=== PATIENT | female | born 1975 | race Caucasian/White ===

== ENCOUNTER → 2017-02-17 | Outpatient (CLI) | payer OTHER ==
--- NOTE | 2017-02-18 16:55 | RADIOLOGY REPORT (SQ) ---
EXAM DESCRIPTION: MRI LUMBAR SPINE WITHOUT COMPLETED DATE/TIME: 02/17/2017 8:20 am REASON FOR STUDY: RADICULOPATHY, LUMBOSACRAL REGION (M54.17) M54.17 RADICULOPATHY, LUMBOSACRAL [place] ON COMPARISON: None. TECHNIQUE: Sagittal and Axial imaging includes T1, T2, STIR and gradient echo sequences. Coronal T2/ HASTE imaging. LIMITATIONS: None. FINDINGS: VISUALIZED UPPER ABDOMEN: Limited evaluation. No acute or suspicious findings suggested. SEGMENTATION: No transitional anatomy. The lowest well-developed disc space is labeled L5-S1. ALIGNMENT: Anatomic. VERTEBRAE: Intact. BONE MARROW: Normal. No marrow replacement or reactive changes. DISC SIGNAL: Normal. No significant abnormal signal or loss of height. POSTERIOR ELEMENTS: Generally intact. No pars defect evident. HARDWARE: None in the spine. CORD AND CONUS: Normal in size and signal intensity. Conus at the appropriate level. SOFT TISSUES: No aortic aneurysm seen. No bulky retroperitoneal adenopathy or mass. No paraspinal mas s or fluid. L1-L2: No significant spinal stenosis or exit foraminal stenosis. L2-L3: No significant spinal stenosis or exit foraminal stenosis. L3-L4: Mild facet arthropathy, slight hypertrophy with associated tiny adjacent synovial cysts. No s uggestion of significant stenosis. L4-L5: Mild facet arthropathy. No significant stenosis. L5-S1: No significant spinal stenosis or exit foraminal stenosis. LOWER THORACIC: Incompletely imaged. No stenosis seen. SACRUM: Visualized upper sacrum intact. OTHER: No other significant findings. IMPRESSION: 1. Mild lumbar spondylosis, facet disease. No evidence of significant spinal stenosis or spinal malalignment. TECHNICAL DOCUMENTATION: JOB ID: [id number] [employer]- All Rights Reserved
== END ==
LOC: RAD 07:26
PROVIDERS: ATTEND Student in an Organized Health Care Education/Training Program
DX: M54.17 Radiculopathy, lumbosacral region (principal)
CPT/HCPCS: 72148

== ENCOUNTER 2018-11-16 08:13 | Emergency (ER) | payer OTHER ==
[2018-11-16] MEDS ORDERED: NORMAL SALINE 1000 ML 1,000 ML IV ONE (08:52)
[2018-11-16] MEDS ORDERED: ONDANSETRON HCL INJ/PF 4 MG/2 ML SDV IV ONE (08:52)
[2018-11-16] MEDS ORDERED: DICYCLOMINE HCL INJ 20 MG/2 ML AMPULE IM ONE (08:53)
[2018-11-16 09:02] LABS: ABSOLUTE EOSINOPHILS # (AUTO) 0.3 10^3/uL (0.0-0.6); ABSOLUTE LYMPHOCYTES (AUTO) 1.9 10^3/uL (0.5-4.7); ABSOLUTE MONOCYTES (AUTO) 0.7 10^3/uL (0.1-1.4); ABSOLUTE NEUT (AUTO) 6.8 10^3/uL (1.7-8.2); BASOPHILS % (AUTO) 0.5 % (0-2); EOSINOPHILS % (AUTO) 3.4 % (0-6); HEMATOCRIT 49.4 % (36.0-47.0); LYMPHOCYTES % (AUTO) 19.3 % (13-45); MEAN CORPUSCULAR HEMOGLOBIN 28.4 pg (27.0-33.4); MEAN CORPUSCULAR HGB CONC 34.4 g/dL (32.0-36.0); MEAN CORPUSCULAR VOLUME 83 fl (80-97); MONOCYTES % (AUTO) 7.6 % (3-13); PLATELET COUNT 303 10^3/uL (150-450); RED BLOOD COUNT 5.99 10^6/uL (3.72-5.28); RED CELL DISTRIBUTION WIDTH 13.5 % (11.5-14.0); SEGMENTED NEUTROPHILS % (AUTO) 69.2 % (42-78); TOTAL CELLS COUNTED % (AUTO) 100 %; WHITE BLOOD COUNT 9.8 10^3/uL (4.0-10.5)
[2018-11-16 09:22] LABS: ALANINE AMINOTRANSFERASE 54 U/L (9-52); ALBUMIN 4.5 g/dL (3.5-5.0); ALKALINE PHOSPHATASE 95 U/L (38-126); ANION GAP 14 (5-19); ASPARTATE AMINO TRANSFERASE 41 U/L (14-36); BILIRUBIN,DIRECT 0.3 mg/dL (0.0-0.4); BILIRUBIN,TOTAL 0.9 mg/dL (0.2-1.3); BLOOD UREA NITROGEN 14 mg/dL (7-20); CALCIUM 9.4 mg/dL (8.4-10.2); CARBON DIOXIDE 19 mmol/L (22-30); CHLORIDE 110 mmol/L (98-107); GLUCOSE 115 mg/dL (75-110); LIPASE 99.2 U/L (23-300); POTASSIUM 3.6 mmol/L (3.6-5.0); SODIUM 142.7 mmol/L (137-145)
[2018-11-16] MEDS ORDERED: RINGERS SOLUTION,LACTATED 1,000 ML IV ONE (09:42)
[2018-11-16 09:47] LABS: APPEARANCE,URINE SLIGHTLY-CLOUDY; BILIRUBIN,URINE NEGATIVE (NEGATIVE); CALCIUM OXALATE CRYSTALS,URINE RARE /HPF; COLOR,URINE YELLOW; GLUCOSE, URINE NEGATIVE (NEGATIVE); KETONES,URINE NEGATIVE (NEGATIVE); LEUKOCYTE ESTERASE,URINE TRACE (NEGATIVE); NITRITE,URINE NEGATIVE (NEGATIVE); PROTEIN,URINE NEGATIVE (NEGATIVE); URINE SPECIFIC GRAVITY 1.018; UROBILINOGEN,URINE NEGATIVE mg/dL (<2.0)
[2018-11-16] MEDS ORDERED: PROCHLORPERAZINE EDISYLATE INJ 10 MG/2 ML VIAL IV ONE (09:49)
[2018-11-16] MEDS ORDERED: DIPHENHYDRAMINE HCL 50 MG/ML VIAL IV ONE (09:49)
--- NOTE | 2018-11-16 10:02 | ER Document Report ---
ED GI/ - General Chief Complaint: Vomiting/Diarrhea Stated Complaint: VOMITTING Time Seen by Provider: 11/16/18 08:37 Primary Care Provider: [facility] [Provider Group] - Follow up as needed Mode of Arrival: Ambulatory Information source: Patient Notes: Patient presents complaining of nausea vomiting and diarrhea. This is the third day of her symptoms. Patient denies any fever. Patient does complain of some abdominal tenderness. Patient states she has not kept her seizure medications down and did have a seizure yesterday. Patient reports vomiting twice today and having diarrhea x3 episodes. TRAVEL OUTSIDE OF THE [place] IN LAST 30 DAYS: No - HPI Patient complains to provider of: Abdominal pain, Diarrhea, Vomiting Onset: Other - 2 days Timing/Duration: Persistent Quality of pain: Achy, Cramping Pain Level: 3 Location: Other - Periumbilical Vaginal bleeding (Compared to normal period): None Associated symptoms: Diarrhea, Nausea, Vomiting. denies: Blood in emesis, Blood in stool, Fever, Urinary hesitancy, Urinary frequency, Vaginal discharge Exacerbated by: Denies Relieved by: Denies Similar symptoms previously: No Recently seen / treated by doctor: Yes - Related Data Allergies/Adverse Reactions: omeprazole [From Prilosec] Allergy (Severe, Verified 11/16/18 08:15) Facial edema and rash Penicillins Allergy (Severe, Verified 11/16/18 08:15) Anaphylaxis carbamazepine [From Carbatrol] Allergy (Mild, Verified 11/16/18 08:15) rash lamotrigine [From Lamictal] Allergy (Mild, Verified 11/16/18 08:15) rash Past Medical History - General Information source: Patient - Social History Smoking Status: Never Smoker Frequency of alcohol use: None Drug Abuse: None 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 Denies: Hx Cerebrovascular Accident Renal/ Medical History: Reports: Hx Kidney Stones. Denies: Hx Peritoneal Dialysis Musculoskeletal Medical History: Denies Hx Arthritis Psychiatric Medical History: Reports: Hx Depression Past Surgical History: Reports: Hx Section, Hx Hysterectomy, Hx Kidney (Renal Surgery) - kidney stone removed - Immunizations Immunizations up to date: Yes Hx Diphtheria, Pertussis, Tetanus Vaccination: Yes Review of Systems - Review of Systems Constitutional: No symptoms reported. denies: Fever, Recent illness EENT: No symptoms reported Cardiovascular: No symptoms reported. denies: Chest pain Respiratory: No symptoms reported. denies: Cough, Short of breath Gastrointestinal: Abdominal pain, Diarrhea, Nausea, Vomiting. denies: Black stools, Rectal bleeding Genitourinary: No symptoms reported. denies: Dysuria Female Genitourinary: No symptoms reported Musculoskeletal: No symptoms reported Skin: No symptoms reported Hematologic/Lymphatic: No symptoms reported Neurological/Psychological: No symptoms reported Physical Exam - Vital signs Vitals: Temp Pulse Resp BP Pulse Ox 98.1 F 113 H 18 119/83 98 11/16/18 08:19 11/16/18 08:19 11/16/18 08:19 11/16/18 08:19 11/16/18 08:19 - General General appearance: Appears well, Alert In distress: Mild - HEENT Head: Normocephalic, Atraumatic Eyes: Normal Conjunctiva: Normal Nasal: Normal Mouth/Lips: Normal Mucous membranes: Normal Neck: Normal, Supple. No: Lymphadenopathy - Respiratory Respiratory status: No respiratory distress Chest status: Nontender Breath sounds: Normal. No: Rales, Rhonchi, Stridor, Wheezing Chest palpation: Normal - Cardiovascular Rhythm: Tachycardia Heart sounds: S1 appreciated, S2 appreciated Murmur: No - Abdominal Inspection: Normal Distension: No distension Bowel sounds: Normal Tenderness: Tender - Periumbilical Organomegaly: No organomegaly - Back Back: Normal, Nontender. No: CVA tenderness - Extremities General upper extremity: Normal inspection, Nontender, Normal strength General lower extremity: Normal inspection, Nontender, Normal strength - Neurological Neuro grossly intact: Yes Cognition: Normal Jonathan Coma Scale Eye Opening: Spontaneous [place] Coma Scale Verbal: Oriented Jonathan Coma Scale Motor: Obeys Commands Jonathan Coma Scale Total: 15 - Psychological Associated symptoms: Normal affect, Normal mood - Skin Skin Temperature: Warm Skin Moisture: Dry Skin Color: Normal Course - Re-evaluation Re-evalutation: 11/16/18 11:41 Patient's vomiting has improved. No additional emesis while here. Patient has been able to tolerate oral fluids as well as take her usual medication. Patient's tachycardia has resolved as well with IV hydration. Patient advised of incidental finding of left ureteral stones. Patient does have findings worrisome for a UTI. We will give patient a dose of Rocephin given her nausea and give her a prescription for Keflex to go home. No concern for obstructive uropathy at this time. Patient with normal renal function tests. No other acute findings noted on patient CT. - Vital Signs Vital signs: Temp Pulse Resp BP Pulse Ox 97.9 F 113 H 12 124/92 H 98 11/16/18 12:01 11/16/18 08:19 11/16/18 12:01 11/16/18 12:01 11/16/18 12:01 - Laboratory Result Diagrams: 11/16/18 08:48 11/16/18 08:48 Laboratory results interpreted by me: 11/16/18 11/16/18 11/16/18 08:48 08:48 09:34 RBC 5.99 H Hgb 17.0 H Hct 49.4 H Chloride 110 H Carbon Dioxide 19 L Glucose 115 H AST 41 H ALT 54 H Urine Blood LARGE H Ur Leukocyte Esterase TRACE H 11/16/18 11:42 Labs- Entire Visit 11/16/18 11/16/18 11/16/18 08:48 08:48 09:34 WBC 9.8 RBC 5.99 H Hgb 17.0 H Hct 49.4 H MCV 83 MCH 28.4 MCHC 34.4 RDW 13.5 Plt Count 303 Seg Neutrophils % 69.2 Lymphocytes % 19.3 Monocytes % 7.6 Eosinophils % 3.4 Basophils % 0.5 Absolute Neutrophils 6.8 Absolute Lymphocytes 1.9 Absolute Monocytes 0.7 Absolute Eosinophils 0.3 Absolute Basophils 0.0 Sodium 142.7 Potassium 3.6 Chloride 110 H Carbon Dioxide 19 L Anion Gap 14 BUN 14 Creatinine 0.86 Est GFR ( Amer) > 60 Est GFR (Non-Af Amer) > 60 Glucose 115 H Calcium 9.4 Total Bilirubin 0.9 Direct Bilirubin 0.3 Neonat Total Bilirubin Not Reportable Neonat Direct Bilirubin Not Reportable Neonat Indirect Bili Not Reportable AST 41 H ALT 54 H Alkaline Phosphatase 95 Total Protein 8.0 Albumin 4.5 Lipase 99.2 Urine Color YELLOW Urine Appearance SLIGHTLY-CLOUDY Urine pH 5.0 Ur Specific [place]ato 1.018 Urine Protein NEGATIVE Urine Glucose (UA) NEGATIVE Urine Ketones NEGATIVE Urine Blood LARGE H Urine Nitrite NEGATIVE Urine Bilirubin NEGATIVE Urine Urobilinogen NEGATIVE Ur Leukocyte Esterase TRACE H Urine WBC (Auto) 18 Urine RBC (Auto) 118 Urine Bacteria (Auto) TRACE Squamous Epi Cells Auto 4 Calcium Oxalate Cr Auto RARE Urine Mucus (Auto) OCC Urine Ascorbic Acid NEGATIVE - Diagnostic Test Radiology reviewed: Reports reviewed Discharge - Discharge Clinical Impression: Dehydration, Nausea vomiting and diarrhea Abdominal pain Qualifiers: Abdominal location: unspecified location Qualified Code(s): R10.9 - Unspecified abdominal pain UTI (urinary tract infection) Qualifiers: Urinary tract infection type: site unspecified Hematuria presence: with hematuria Qualified Code(s): N39.0 - Urinary tract infection, site not specified Condition: Stable Disposition: HOME, SELF-CARE Additional Instructions: Return immediately for any new or worsening symptoms Followup with your primary care provider, call tomorrow to make a followup appointment Urine culture is pending, will call if you need any different treatment VOMITING: Vomiting (or nausea without vomiting) can be caused by many other different problems. It can mean that something's wrong with the stomach, such as ulcers or inflammation or the intestinal tract, such as appendicitis. But it can also be a symptom of a problem that has nothing to do with the stomach or intestines. Vomiting is common with severe headaches, earaches, tonsillitis, and kidney infections, etc. We see it with pneumonia or heart attacks. Drugs can cause nausea and vomiting. Many abdominal problems cause vomiting; for example, gallstones, kidney stones, pancreatitis, and intestinal obstruction (blocked bowels). In most cases, curing the vomiting depends on fixing the problem that caused it. For temporary relief, we may use an anti-nausea medicine. For home use, we can prescribe suppositories, chewable pills, pills that dissolve in the mouth, or liquid anti-nausea drugs. If the vomiting seems to be caused by a problem in the stomach, acid-suppressing drugs may be prescribed as well. It's important to avoid dehydration. Sip small amounts of clear liquids (soft drinks, tea, broth, etc) . Try to take fluids frequently even if you are vomiting to prevent dehydration. Take increasing amounts of fluid and when liquids are being consumed successfully, advance to small amounts of bland food (toast, soups, mashed potatoes, etc.) until you are able to resume a regular diet. Avoid aspirin, tobacco, and alcohol. If the vomiting worsens, if the problem that's making you vomit worsens, or if there's evidence of bleeding in the stomach (such as black, tarry stool, or bloody or black vomit), you should return immediately. Also, return if abdominal pain worsens or becomes localized to one area or you develop high fever. Call your doctor if you aren't improved in 24 hours. DIARRHEA, NON-SPECIFIC: Diarrhea means frequent, watery stools. There are many causes. Any problem that keeps the intestinal tract from absorbing water from the stool can lead to diarrhea. A sudden new diarrhea problem is usually caused by a virus, food sensitivity, toxic bacteria, or drugs. In this case, we expect the problem to go away soon. Testing is done only if you seem seriously ill from the diarrhea. If you have chronic diarrhea, or diarrhea that keeps coming back, we need to find out why. Chronic diarrhea can be due to inflammation of the bowels such as Crohn's disease or ulcerative colitis, food sensitivity such as intolerance to lactose or wheat protein, irritable bowel syndrome, and other problems. If your diarrhea is a significant problem but it's not clear why you have it, we'll refer you to a specialist for further testing. During an episode of diarrhea, drink small amounts (two to six ounces) of clear liquids (soft drinks, sport drinks, herb teas, broth, etc). Take fluids frequently to prevent dehydration. It's usually not a problem to take mild anti- diarrhea medication such as Kaopectate or Pepto-Bismol. As the diarrhea eases, advance to small amounts of bland food (mashed potato, toast) for 24 hours. Call the physician if blood appears in your vomit or stool, if vomiting lasts longer than 24 hours, if the abdominal pain worsens or becomes localized to one area, if you develop high fever, or if you become lightheaded and weak. INTRAVENOUS (I V) FLUIDS: As part of your care today, you received intravenous (IV) fluids. IV fluids are administered to patients who are dehydrated or to those who have certain chemical (electrolyte) abnormalities that need correcting. ANTINAUSEA MEDICATION: You have been given a medication to suppress nausea and vomiting. This type of medication can be given as a shot, pill, or suppository. It will usually last for many hours. Pills and shots usually last six to eight hours. For the typical illness, only one or two doses of the medication may be necessary. Mild lightheadedness may occur. This type of medicine can cause drowsiness. Do not drive or operate dangerous machinery while under its influence. Do not mix with alcohol. See your doctor at once if you have muscle spasms or tightness, or uncontrollable motions (particularly of the neck, mouth, or jaw). Persistent vomiting or severe lightheadedness should also be evaluated by the physician. FOLLOW-UP CARE: If you have been referred to a physician for follow-up care, call the physicians office for an appointment as you were instructed or within the next two days. If you experience worsening or a significant change in your symptoms, notify the physician immediately or return to the Emergency Department at any ti me for re-evaluation. Prescriptions: Cephalexin Monohydrate [Keflex 500 mg Capsule] 500 mg PO Q6H 5 Days capsule Dicyclomine HCl [Bentyl 20 mg Tablet] 20 mg PO QID PRN #20 tablet PRN Reason: Ondansetron HCl [Zofran 4 mg Tablet] 1 - 2 tab PO Q6 PRN #15 tablet PRN Reason: Forms: Return to Work [facility] [[facility] - Follow up as needed
--- NOTE | 2018-11-16 10:38 | RADIOLOGY REPORT (SQ) ---
EXAM DESCRIPTION: CT ABD/PELVIS NO ORAL OR IV COMPLETED DATE/TIME: 11/16/2018 10:20 am REASON FOR STUDY: V/D, L side abd pain, +hematuria, hx stones COMPARISON: 08/18/2015 TECHNIQUE: CT scan of the abdomen and pelvis performed without intravenous or oral contrast. Images reviewed with lung, soft tissue, and bone windows. Reconstructed coronal and sagittal MPR images revi ewed. All images stored on PACS. All CT scanners at this facility use dose modulation, iterative reconstruction, and/or weight based d osing when appropriate to reduce radiation dose to as low as reasonably achievable (ALARA). [facility]: Dose Right [facility]: CareDose [facility]: Dose Right [facility]: Teradose 4D [facility]: Casentric RADIATION DOSE: CT Rad equipment meets quality standard of care and radiation dose reduction techniq ues were employed. CTDIvol: 6.8 mGy. DLP: 382 mGy-cm.mGy. LIMITATIONS: None. FINDINGS: LOWER CHEST: No significant findings. No nodules or infiltrates. NON-CONTRASTED LIVER, SPLEEN, ADRENALS: Evaluation limited by lack of IV contrast. No identified sign ificant masses. PANCREAS: No masses. No peripancreatic inflammatory changes. GALLBLADDER: No identified stones by CT criteria. No inflammatory changes to suggest cholecystitis. RIGHT KIDNEY AND URETER: No suspicious masses. Assessment limited by lack of IV contrast. No signif icant calcifications. No hydronephrosis or hydroureter. LEFT KIDNEY AND URETER: No suspicious masses. Assessment limited by lack of IV contrast. Multiple r enal calculi measuring up to about 5 mm. No hydronephrosis or hydroureter. AORTA AND RETROPERITONEUM: No aneurysm. No retroperitoneal masses or adenopathy. BOWEL AND PERITONEAL CAVITY: No obvious masses or inflammatory changes. No free fluid. APPENDIX: Normal. PELVIS, BLADDER, AND ABDOMINAL WALL:No abnormal masses. No free fluid. Bladder normal. BONES: No significant findings. OTHER: No other significant finding. IMPRESSION: Nonobstructing left renal calculi. COMMENT: Quality ID # [id number]: Final reports with documentation of one or more dose reduction techniques (e.g., Automated exposure control, adjustment of the mA and/or kV according to patient size, use of iterative reconstruction technique) TECHNICAL DOCUMENTATION: JOB ID: [id number]- All Rights Reserved Reading location - IP/workstation name: [email or web address]
[2018-11-16] MEDS ORDERED: CEFTRIAXONE 1 GM/D5W RTU 1 GM/50 ML RTUPB IV ONE (11:42)
[2018-11-16 12:23] VITALS: BP 124/92
== END 2018-11-16 12:23 | disposition home or self-care (01) ==
LOC: ER 08:13
DX: N39.0 Urinary tract infection, site not specified (principal); R11.2 Nausea with vomiting, unspecified; R19.7 Diarrhea, unspecified; E86.0 Dehydration; R10.9 Unspecified abdominal pain
CPT/HCPCS: 99284; 96372; 96361; 96375; 96365; 36415; 87086; 83690; 85025; 80053; 81001; 74176; J0500; J1200; J0780; J2405; J7030; J7120; J0696

== ENCOUNTER 2019-07-06 13:36 | Emergency (ER) | payer OTHER ==
[2019-07-06] MEDS ORDERED: DIPHENHYDRAMINE HCL 50 MG/ML VIAL IV ONE (14:32)
[2019-07-06] MEDS ORDERED: METOCLOPRAMIDE HCL INJ/PF 10 MG/2 ML SDV IV ONE (14:32)
[2019-07-06] MEDS ORDERED: KETOROLAC TROMETHAMINE INJ/PF 30 MG/1 ML SDV IV ONE (14:32)
--- NOTE | 2019-07-06 14:35 | ER Document Report ---
ED Medical Screen (RME) - General Chief Complaint: Depression Stated Complaint: HEADACHE/PSYCH Time Seen by Provider: 07/06/19 14:26 Primary Care Provider: JEANNIE OTERO MD [Primary Care Provider] - Follow up as needed Notes: 43-year-old female with MDD on an SSRI, history of migraine headaches and epilepsy presents to the emergency department seeking mental health services. Patient states that she had a traumatic event happen today that "set me off" and she is having difficulty coping and has extremely high anxiety. Patient states that she has recently changed insurance and she was seeing a psychologist weekly which was helping and she lost those services which is affecting her. Exam: Nontoxic-appearing, depressed mood, mild anxiety, lungs clear to auscultation all contreras, tachycardia with regular rhythm I have greeted and performed a rapid initial assessment of this patient. A comprehensive ED assessment and evaluation of the patient, analysis of test results and completion of medical decision making process will be conducted by an additional ED providers. TRAVEL OUTSIDE OF THE [place] IN LAST 30 DAYS: No - Related Data Allergies/Adverse Reactions: omeprazole [From Prilosec] Allergy (Severe, Verified 07/06/19 14:20) Facial edema and rash carbamazepine [From Carbatrol] Allergy (Mild, Verified 07/06/19 14:20) rash lamotrigine [From Lamictal] Allergy (Mild, Verified 07/06/19 14:20) rash Penicillins Allergy (Mild, Verified 07/06/19 14:20) Anaphylaxis kepra Allergy (Mild, Uncoded 07/06/19 14:20) Rash Home Medications: Tamadol PRN. Zofran PRN. Phenergan PRN. NAproxen PRN. Flexeril PRN. Prozac Past Medical History - Social History Chew tobacco use (# tins/day): No Drug Abuse: None - Past Medical History Cardiac Medical History: Denies: Hx Coronary Artery Disease, Hx Heart Attack, Hx Hypertension Pulmonary Medical History: Denies: Hx Asthma, Hx Bronchitis, Hx COPD, Hx Pneumonia Neurological Medical History: Reports: Hx Migraine, Hx Seizures - last seizure 2 weeks ago. Denies: Hx Cerebrovascular Accident Renal/ Medical History: Reports: Hx Kidney Stones. Denies: Hx Peritoneal Dialysis Musculoskeltal Medical History: Denies Hx Arthritis Psychiatric Medical History: Reports: Hx Depression Past Surgical History: Reports: Hx Section, Hx Hysterectomy, Hx Kidney (Renal Surgery) - kidney stone removed - Immunizations Immunizations up to date: Yes Hx Diphtheria, Pertussis, Tetanus Vaccination: Yes Physical Exam - Vital signs Vitals: Temp Pulse Resp BP Pulse Ox 98.7 F 107 H 18 147/109 H 99 07/06/19 14:21 07/06/19 14:21 07/06/19 14:21 07/06/19 14:21 07/06/19 14:21 Course - Vital Signs Vital signs: Temp Pulse Resp BP Pulse Ox 98.7 F 107 H 18 147/109 H 99 07/06/19 14:21 07/06/19 14:21 07/06/19 14:21 07/06/19 14:21 07/06/19 14:21 Doctor's Discharge - Discharge Referrals: JEANNIE OTERO MD [Primary Care Provider] - Follow up as needed
[2019-07-06 15:11] LABS: ABSOLUTE BASOPHILS # (AUTO) 0.1 10^3/uL (0.0-0.2); ABSOLUTE EOSINOPHILS # (AUTO) 0.3 10^3/uL (0.0-0.6); ABSOLUTE LYMPHOCYTES (AUTO) 2.5 10^3/uL (0.5-4.7); ABSOLUTE MONOCYTES (AUTO) 0.8 10^3/uL (0.1-1.4); ABSOLUTE NEUT (AUTO) 6.4 10^3/uL (1.7-8.2); BASOPHILS % (AUTO) 0.9 % (0-2); EOSINOPHILS % (AUTO) 2.9 % (0-6); HEMATOCRIT 44.9 % (36.0-47.0); HEMOGLOBIN 15.8 g/dL (12.0-15.5); LYMPHOCYTES % (AUTO) 24.9 % (13-45); MEAN CORPUSCULAR HEMOGLOBIN 28.6 pg (27.0-33.4); MEAN CORPUSCULAR HGB CONC 35.3 g/dL (32.0-36.0); MEAN CORPUSCULAR VOLUME 81 fl (80-97); MONOCYTES % (AUTO) 7.4 % (3-13); PLATELET COUNT 275 10^3/uL (150-450); RED BLOOD COUNT 5.54 10^6/uL (3.72-5.28); RED CELL DISTRIBUTION WIDTH 13.4 % (11.5-14.0); SEGMENTED NEUTROPHILS % (AUTO) 63.9 % (42-78); TOTAL CELLS COUNTED % (AUTO) 100 %; WHITE BLOOD COUNT 10.1 10^3/uL (4.0-10.5)
[2019-07-06 15:18] LABS: APPEARANCE,URINE CLEAR; BILIRUBIN,URINE NEGATIVE (NEGATIVE); COLOR,URINE YELLOW; GLUCOSE, URINE NEGATIVE (NEGATIVE); KETONES,URINE NEGATIVE (NEGATIVE); LEUKOCYTE ESTERASE,URINE NEGATIVE (NEGATIVE); NITRITE,URINE NEGATIVE (NEGATIVE); PROTEIN,URINE NEGATIVE (NEGATIVE); URINE SPECIFIC GRAVITY 1.019; UROBILINOGEN,URINE NEGATIVE mg/dL (<2.0)
[2019-07-06 15:30] LABS: ALBUMIN 4.7 g/dL (3.5-5.0); ALKALINE PHOSPHATASE 73 U/L (38-126); ANION GAP 12 (5-19); ASPARTATE AMINO TRANSFERASE 60 U/L (14-36); BILIRUBIN,DIRECT 0.3 mg/dL (0.0-0.4); BILIRUBIN,TOTAL 0.6 mg/dL (0.2-1.3); BLOOD UREA NITROGEN 16 mg/dL (7-20); CALCIUM 9.4 mg/dL (8.4-10.2); CARBON DIOXIDE 26 mmol/L (22-30); CHLORIDE 102 mmol/L (98-107); GLUCOSE 91 mg/dL (75-110); POTASSIUM 3.6 mmol/L (3.6-5.0); TOTAL PROTEIN 8.4 g/dL (6.3-8.2)
[2019-07-06 15:31] LABS: URINE AMPHETAMINES SCREEN NEGATIVE; URINE BARBITURATES SCREEN NEGATIVE; URINE COCAINE SCREEN NEGATIVE; URINE MARIJUANA (THC) SCREEN NEGATIVE; URINE METHADONE SCREEN NEGATIVE; URINE PHENCYCLIDINE SCREEN NEGATIVE
[2019-07-06 15:36] LABS: ACETAMINOPHEN < 10 ug/mL (10-30); ALCOHOL < 10 mg/dL (NONE DETECTED); SALICYLATE < 1.0 mg/dL (2.0-20.0); URINE BENZODIAZEPINES SCREEN UNCONFIRMED POSITIVE
--- NOTE | 2019-07-06 16:45 | PSYCHOLOGICAL NOTE ---
Psych Note - Psych Note Date seen by psych provider: 07/06/19 Time seen by psych provider: 15:50 Psych Note: Reason for consult: Anxiety Patient is a 43 year old female who presents to ED via POV for concerns with anxiety. Patient is experiencing psychosocial and financial stressors. 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 Patient states she is the primary breadwinner in the family since her lost his job. 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 Patient states she receives tele-mentalhealth services through her insurance company. Patient states she does not receive benefit and frequently misses appointments. Patient states she would "do better with face to face therapy. Patient is prescribed Zoloft. Patient is requesting medication to manage anxiety. Patient reports suicidal ideation with no plan this morning, however denies current suicidal ideation. Patient states "I have 3 beautiful children that are my world." Patient's urine drug screen is positive for benzo. Patient states she has not taken any benzo. A search of [facility] was conducted and showed that patient has been frequently prescribed Tramadol, Hydrocodone, Diazepam, and Ambien. There is concern that patient is drug seeking. Patient is linked with [facility]. Patient is not being honest regarding her prescription medications. Update: 16:57- Patient states she "is feeling so much better now the migraine is gone." Patient is alert and oriented to person, place, time and circumstance. Mood is normal with congruent affect. Patient does not present as anxious. Patient denies suicidal and homicidal ideations. Patient denies current auditory and visual hallucination. Delusions are absent and behavior is congruent with an intact reality based presentation (i.e.: organized and linear through processes). There is no observed behavior that suggests patient is responding to internal stimuli. Patient denies current auditory and visual hallucinations. Eye contact is appropriate. Conversational speech is within normal rate, tone, and prosody. Intellectual ability appears to be within average range. Attention and concentration are good. Insight, judgment and impulse control are currently fair. Medication recommendations per [facility] contracted psychiatrist Dr. Annamarie TORREZ is as follows: Buspar 5MG, BID Impression/Plan: Patient is cleared from acute psychiatric services. Medication recommendations have been provided. Patient denies suicidal and homicidal ideations. Patient denies auditory and visual hallucinations. There is no observed behavior that suggests patient is responding to internal stimuli. There is significant concern that patient is drug seeking. Patient could benefit from outpatient mental health services. Darlene was provided a mental health recourse list and Dr. Jang was consulted on the care and management of this patient; attending physician is in agreement with recommendations and disposition.
[2019-07-06 17:17] VITALS: BP 140/95
--- NOTE | 2019-07-06 17:24 | ER Document Report ---
ED Psych Disorder / Suicide - General Chief Complaint: Depression Stated Complaint: HEADACHE/PSYCH Time Seen by Provider: 07/06/19 14:26 Primary Care Provider: JEANNIE OTERO MD [ACTIVE STAFF] - Follow up as needed Notes: Patient is a 43-year-old female with a history of migraines, epilepsy and depression who presents to the emergency department with a chief complaint of high anxiety and migraine. Patient reports increased stress and anxiety over the past few days. Patient reports after an incident this morning involving her job she became extremely anxious and developed a headache. Patient reports she developed a frontal headache with a nausea and photosensitivity. Patient denies vomiting. Patient reports since receiving medication in triage her headache is now subsided. Patient reports she would like something for her anxiety. Patient reports she was doing tele-psych through her insurance and receiving therapy sessions through them. Patient reports she has not had this recently. Patient reports her primary care physician is at [facility]. Patient does live with her spouse and has 3 children. Patient denies SI or HI. Patient reports that her children are her world. TRAVEL OUTSIDE OF THE [place] IN LAST 30 DAYS: No - Related Data Allergies/Adverse Reactions: omeprazole [From Prilosec] Allergy (Severe, Verified 07/06/19 14:20) Facial edema and rash carbamazepine [From Carbatrol] Allergy (Mild, Verified 07/06/19 14:20) rash lamotrigine [From Lamictal] Allergy (Mild, Verified 07/06/19 14:20) rash Penicillins Allergy (Mild, Verified 07/06/19 14:20) Anaphylaxis kepra Allergy (Mild, Uncoded 07/06/19 14:20) Rash Home Medications: Tamadol PRN. Zofran PRN. Phenergan PRN. NAproxen PRN. Flexeril PRN. Prozac Past Medical History - General Information source: Patient - Social History Smoking Status: Never Smoker Chew tobacco use (# tins/day): No Drug Abuse: None Lives with: Family, Spouse/Significant other Family History: Reviewed & Not Pertinent Patient has suicidal ideation: Yes Patient has homicidal ideation: No - Past Medical History Cardiac Medical History: Reports: None Denies: Hx Coronary Artery Disease, Hx Heart Attack, Hx Hypertension Pulmonary Medical History: Reports: None Denies: Hx Asthma, Hx Bronchitis, Hx COPD, Hx Pneumonia EENT Medical History: Reports: None Neurological Medical History: Reports: Hx Migraine, Hx Seizures - last seizure 2 weeks ago. Denies: Hx Cerebrovascular Accident Endocrine Medical History: Reports: None Renal/ Medical History: Reports: Hx Kidney Stones. Denies: Hx Peritoneal Dialysis Malignancy Medical History: Reports: None GI Medical History: Reports: None Musculoskeletal Medical History: Reports None, Denies Hx Arthritis Skin Medical History: Reports None Psychiatric Medical History: Reports: Hx Depression Traumatic Medical History: Reports: None Infectious Medical History: Reports: None Past Surgical History: Reports: Hx Section, Hx Hysterectomy, Hx Kidney (Renal Surgery) - kidney stone removed - Immunizations Immunizations up to date: Yes Hx Diphtheria, Pertussis, Tetanus Vaccination: Yes Review of Systems - Review of Systems Constitutional: No symptoms reported EENT: See HPI Cardiovascular: No symptoms reported Respiratory: No symptoms reported Gastrointestinal: No symptoms reported Genitourinary: No symptoms reported Female Genitourinary: No symptoms reported Musculoskeletal: No symptoms reported Skin: No symptoms reported Hematologic/Lymphatic: No symptoms reported Neurological/Psychological: No symptoms reported Physical Exam - Vital signs Vitals: Temp Pulse Resp BP Pulse Ox 98.7 F 107 H 18 147/109 H 99 07/06/19 14:21 07/06/19 14:21 07/06/19 14:21 07/06/19 14:21 07/06/19 14:21 Interpretation: Hypertensive - Notes Notes: GENERAL: Well-appearing, well-nourished and in no acute distress. HEAD: Atraumatic, normocephalic. EYES: Pupils equal round and reactive to light, extraocular movements intact, sclera anicteric, conjunctiva are normal. ENT: Nares patent, oropharynx clear without exudates. Moist mucous membranes. NECK: Normal range of motion, supple without lymphadenopathy or JVD. LUNGS: Breath sounds clear to auscultation bilaterally and equal. No wheezes rales or rhonchi. HEART: Regular rate and rhythm without murmurs, rubs or gallops. ABDOMEN: Soft, nontender, normoactive bowel sounds. No guarding, no rebound. No masses appreciated. BACK: No cervical, thoracic, lumbar midline tenderness. No saddle anesthesia, normal distal neurovascular exam. GENITOURINARY: Deferred. EXTREMITIES: Normal range of motion, no pitting or edema. No clubbing or cyanosis. NEUROLOGICAL: Cranial nerves II through XII grossly intact. Normal speech, normal gait. PSYCH: Normal mood, normal affect. SKIN: Warm, Dry, normal turgor, no rashes or lesions noted. Course - Re-evaluation Re-evalutation: 07/06/19 17:23 At time of my assessment patient is resting comfortably on stretcher in no acute distress. Patient does not have any anxiety. Patient reports relief of her m igraine headache after receiving medications in triage. Patient is under the care of of pain management, this is located at [place] [facility] and does have a follow-up appointment on Tuesday. Patient reports she does take medications for chronic back pain. Patient also reports her primary care physician is at [facility]. I did inform her to call them on Tuesday as they do provide psychiatric services. Further recommendations of mental health they do recommend placing the patient on BuSpar 5 mg twice daily. I did inform the patient I will provide her with a two-week dose of this so it is imperative that she follows up with her primary care physician, call make an appointment on Tuesday so they can refill this prescription and see how she is doing. Patient was given strict return precautions. Patient denies SI or HI. Patient nontoxic-appearing and stable for discharge. 07/06/19 17:35 Patient reports she does take 40 mg of Prozac daily for her depression. I did consult with mental health prior to initiating the BuSpar, consulted with Dr. Jang who states that at these dosages there are no contraindications to mixing the Prozac and the BuSpar. - Vital Signs Vital signs: Temp Pulse Resp BP Pulse Ox 97.8 F 93 18 140/95 H 100 07/06/19 17:16 07/06/19 17:16 07/06/19 17:16 07/06/19 17:16 07/06/19 17:16 - Laboratory Result Diagrams: 07/06/19 14:50 07/06/19 14:50 Laboratory results interpreted by me: 07/06/19 07/06/19 07/06/19 14:50 14:50 14:50 RBC 5.54 H Hgb 15.8 H AST 60 H Total Protein 8.4 H Urine Blood SMALL H Salicylates < 1.0 L Acetaminophen < 10 L 07/06/19 17:24 Patient does not have a leukocytosis or anemia. Patient does not have alteration electrolytes or kidney function. Patient's AST is slightly elevated. Patient is not does not have a urinary tract infection. Patient was positive for benzodiazepines. Laboratory 07/06/19 07/06/19 07/06/19 14:50 14:50 14:50 WBC 10.1 RBC 5.54 H Hgb 15.8 H Hct 44.9 MCV 81 MCH 28.6 MCHC 35.3 RDW 13.4 Plt Count 275 Lymph % (Auto) 24.9 Dorado % (Auto) 7.4 Eos % (Auto) 2.9 Baso % (Auto) 0.9 Absolute Neuts (auto) 6.4 Absolute Lymphs (auto) 2.5 Absolute Monos (auto) 0.8 Absolute Eos (auto) 0.3 Absolute Basos (auto) 0.1 Seg Neutrophils % 63.9 Sodium 140.2 Potassium 3.6 Chloride 102 Carbon Dioxide 26 Anion Gap 12 BUN 16 Creatinine 0.70 Est GFR ( Amer) > 60 Est GFR (MDRD) Non-Af > 60 Glucose 91 Calcium 9.4 Total Bilirubin 0.6 Direct Bilirubin 0.3 Neonat Total Bilirubin Not Reportable Neonat Direct Bilirubin Not Reportable Neonat Indirect Bili Not Reportable AST 60 H ALT 78 Alkaline Phosphatase 73 Total Protein 8.4 H Albumin 4.7 Serum HCG, Qual NEGATIVE Urine Color Urine Appearance Urine pH Ur Specific Hutchinson Urine Protein Urine Glucose (UA) Urine Ketones Urine Blood Urine Nitrite Urine Bilirubin Urine Urobilinogen Ur Leukocyte Esterase Urine WBC (Auto) Urine RBC (Auto) Urine Bacteria (Auto) Squamous Epi Cells Auto Urine Mucus (Auto) Urine Ascorbic Acid Salicylates < 1.0 L Urine Opiates Screen Urine Methadone Screen Acetaminophen < 10 L Ur Barbiturates Screen Ur Phencyclidine Scrn Ur Amphetamines Screen U Benzodiazepines Scrn Urine Cocaine Screen U Marijuana (THC) Screen Serum Alcohol < 10 07/06/19 07/06/19 14:50 14:50 WBC RBC Hgb Hct MCV MCH MCHC RDW Plt Count Lymph % (Auto) Dorado % (Auto) Eos % (Auto) Baso % (Auto) Absolute Neuts (auto) Absolute Lymphs (auto) Absolute Monos (auto) Absolute Eos (auto) Absolute Basos (auto) Seg Neutrophils % Sodium Potassium Chloride Carbon Dioxide Anion Gap BUN Creatinine Est GFR ( Amer) Est GFR (MDRD) Non-Af Glucose Calcium Total Bilirubin Direct Bilirubin Neonat Total Bilirubin Neonat Direct Bilirubin Neonat Indirect Bili AST ALT Alkaline Phosphatase Total Protein Albumin Serum HCG, Qual Urine Color YELLOW Urine Appearance CLEAR Urine pH 6.0 Ur Specific Hutchinson 1.019 Urine Protein NEGATIVE Urine Glucose (UA) NEGATIVE Urine Ketones NEGATIVE Urine Blood SMALL H Urine Nitrite NEGATIVE Urine Bilirubin NEGATIVE Urine Urobilinogen NEGATIVE Ur Leukocyte Esterase NEGATIVE Urine WBC (Auto) 9 Urine RBC (Auto) 7 Urine Bacteria (Auto) TRACE Squamous Epi Cells Auto 1 Urine Mucus (Auto) RARE Urine Ascorbic Acid NEGATIVE Salicylates Urine Opiates Screen NEGATIVE Urine Methadone Screen NEGATIVE Acetaminophen Ur Barbiturates Screen NEGATIVE Ur Phencyclidine Scrn NEGATIVE Ur Amphetamines Screen NEGATIVE U Benzodiazepines Scrn UNCONFIRMED POSITIVE Urine Cocaine Screen NEGATIVE U Marijuana (THC) Screen NEGATIVE Serum Alcohol Discharge - Discharge Clinical Impression: Anxiety Depression Qualifiers: Depression Type: major depressive disorder Major depression recurrence: recurrent Active/Remission status: currently active Major depression episode severity: mild Qualified Code(s): F33.0 - Major depressive disorder, recurrent, mild Migraine Qualifiers: Migraine type: without aura Status migrainosus presence: without status migrainosus Intractability: not intractable Qualified Code(s): G43.009 - Migraine without aura, not intractable, without status migrainosus Condition: Stable Disposition: HOME, SELF-CARE Additional Instructions: *Today was seen in emergency department for headache and anxiety. After giving you medications your headache has improved. We are placing you on a BuSpar 5 mg twice daily. I am giving you a 2-week dose of this. It is imperative that you follow-up with your primary care physician and call them on Tuesday for an appointment so you can have this prescription refilled within 2 weeks. Please use the resources given to you by her mental health staff to help you set up psychiatric assistance to include therapy. We have given your first dose of BuSpar here in the emergency department. Please take your second dose tomorrow morning and start this twice a day. Please return to the emergency department if you have any new or worsening symptoms such as increased anxiety, suicidal thoughts, homicidal thoughts, severe depression or any concerning signs or symptoms. Anxiety The physician feels that some of your health problems are being caused by anxiety. Anxiety affects your health in many ways. Anxiety alone can cause palpitations, sweats, chest pains, abdominal pains, shortness of breath, and headaches. It contributes to ulcer disease, high blood pressure, irritable bowel syndrome, and has been shown to cause flare-ups of many other diseases. Anxiety is not a simple disorder to treat. If the anxiety is due to recent life stresses, you may simply need time to "work through" the changes. If the anxiety is due to an underlying unhappiness with yourself or due to psychiatric disturbance, professional help will be needed. Your physician can refer you for further help if needed. Anti-anxiety medication is occasionally given if the stress is acute or if you are having trouble sleeping. Chronic or frequent use of these medications is not a good idea because the body becomes reliant on it, preventing you from dealing with life's normal stresses. Depression Your evaluation reveals that you have mental depression. While symptoms may be vague, they often include disturbance of sleep, fatigue, loss of appetite, and general loss of interest in life. While depression may be a side effect of drugs, or a reaction to a major change in your life, many cases have no known cause. If depression is acute, and related to a major loss in your life, you can expect it to clear completely with time. If you have been depressed a long time, are prone to repeated bouts of depression or low mood, or have been thinking of suicide, get help. Depression can be treated with anti-depressant medication and counselling. Long-term depression will often take a few weeks to clear, even with appropriate medication. Follow-up care is important. Contact your physician, the hospital emergency center, crisis line, or your counsellor if you are losing control or having self-destructive thoughts. Prescriptions: Buspirone HCl [Buspar 5 mg Tablet] 1 tab PO BID #28 tab Referrals: JEANNIE OTERO MD [ACTIVE STAFF] - Follow up as needed
[2019-07-06] MEDS ORDERED: BUSPIRONE HCL 10 MG TABLET PO ONE (17:25)
--- NOTE | 2019-07-06 19:50 | EKG REPORT ---
SEVERITY:- OTHERWISE NORMAL ECG - SINUS TACHYCARDIA SUPERIOR QRS AXIS : Confirmed by: Sharan Chung MD 06-Jul-2019 19:49:26
== END 2019-07-06 18:07 | disposition home or self-care (01) ==
LOC: ER 13:36
DX: G43.009 Migraine without aura, not intractable, without status migrainosus (principal); F41.9 Anxiety disorder, unspecified; F33.0 Major depressive disorder, recurrent, mild; Z88.0 Allergy status to penicillin
CPT/HCPCS: 93005; 99285; 96374; 96375; 36415; 80307 ×4; 84703; 85025; 80053; 81001; 93010; J1885; J2765

== ENCOUNTER → 2020-01-15 | Outpatient (CLI) | payer OTHER ==
--- NOTE | 2020-01-15 13:01 | RADIOLOGY REPORT (SQ) ---
EXAM DESCRIPTION: U/S ABDOMEN LIMITED W/O DOP IMAGES COMPLETED DATE/TIME: 01/15/2020 10:13 am REASON FOR STUDY: ABNORMAL LEVELS OF OTHER SERUM ENZYMES R74.8 ABNORMAL LEVELS OF OTHER SERUM ENZYM ES COMPARISON: None. TECHNIQUE: Dynamic and static grayscale images acquired of the abdomen and recorded on PACS. Additio nal selected color Doppler and spectral images recorded. LIMITATIONS: None. FINDINGS: PANCREAS: No masses. Visualized pancreatic duct normal caliber. LIVER: Increased echogenicity. No masses. LIVER VASCULATURE: Normal directional flow of the main portal vein and hepatic veins. GALLBLADDER: No stones. Normal wall thickness. No pericholecystic fluid. ULTRASOUND-DETECTED GOEL'S SIGN: Negative. INTRAHEPATIC DUCTS AND COMMON DUCT: CBD and intrahepatic ducts normal caliber. No filling defects. AORTA: No aneurysm. RIGHT KIDNEY: Normal size, 10.1 cm. Normal echogenicity. No solid or suspicious masses. No hydroneph rosis. No calcifications. PERITONEAL AND RIGHT PLEURAL SPACE: No ascites or effusions. OTHER: No other significant findings. IMPRESSION: Hepatic steatosis. TECHNICAL DOCUMENTATION: JOB ID: [id number] 2010 [employer]- All Rights Reserved Reading location - IP/workstation name: [email or web address]
== END ==
LOC: RAD 09:46
PROVIDERS: ATTEND Nurse Practitioner Family
DX: R74.8 Abnormal levels of other serum enzymes (principal); K76.0 Fatty (change of) liver, not elsewhere classified
CPT/HCPCS: 76705

== ENCOUNTER 2020-03-20 09:25 | Emergency (ER) | payer OTHER ==
[2020-03-20] MEDS ORDERED: LORAZEPAM INJ 2 MG/1 ML VIAL IV ONE (09:49)
--- NOTE | 2020-03-20 09:57 | ER Document Report ---
ED General - General Chief Complaint: Seizure Stated Complaint: POSSIBLE SEIZURE/HEADACHE Time Seen by Provider: 03/20/20 09:36 Primary Care Provider: AV OGLESBY NP [Primary Care Provider] - Follow up as needed TRAVEL OUTSIDE OF THE [place] IN LAST 30 DAYS: No - HPI Notes: Chief complaint: Seizure History of present illness: 44-year-old female with longstanding history of seizure disorder has been seen here multiple times previously for same now presenting with 2 seizures at home this morning per . She came in by EMS. Patient is supposed to be taking topiramate but apparently missed some doses of her medication. She is not been running a fever. No vomiting. No other intercurrent illness reported. Patient does not use alcohol or tobacco and has no history of drug use. She does have a history of chronic migraine headaches. reports she had 2 brief generalized tonic-clonic seizures. There was no loss of urinary continence. She was mildly post ictal following her seizures and remains so. She complains of a slight dull generalized headache at this time. - Related Data Allergies/Adverse Reactions: omeprazole [From Prilosec] Allergy (Severe, Verified 03/20/20 10:36) Facial edema and rash carbamazepine [From Carbatrol] Allergy (Mild, Verified 03/20/20 10:36) rash lamotrigine [From Lamictal] Allergy (Mild, Verified 03/20/20 10:36) rash levetiracetam [From Keppra] Allergy (Mild, Verified 03/20/20 10:36) Penicillins Allergy (Mild, Verified 03/20/20 10:36) Anaphylaxis Past Medical History - General Information source: Patient, Relative, [facility] Records - Social History Smoking Status: Never Smoker Frequency of alcohol use: None Drug Abuse: None Family History: Reviewed & Not Pertinent - Past Medical History Cardiac Medical History: Denies: Hx Coronary Artery Disease, Hx Heart Attack, Hx Hypertension Pulmonary Medical History: Denies: Hx Asthma, Hx Bronchitis, Hx COPD, Hx Pneumonia Neurological Medical History: Reports: Hx Migraine, Hx Seizures - last seizure 2 weeks ago. Denies: Hx Cerebrovascular Accident Renal/ Medical History: Reports: Hx Kidney Stones. Denies: Hx Peritoneal Dialysis Musculoskeletal Medical History: Denies Hx Arthritis Psychiatric Medical History: Reports: Hx Depression Past Surgical History: Reports: Hx Section, Hx Hysterectomy, Hx Kidney (Renal Surgery) - kidney stone removed - Immunizations Immunizations up to date: Yes Hx Diphtheria, Pertussis, Tetanus Vaccination: Yes Review of Systems - Review of Systems Notes: Constitutional: Negative for fever. HENT: Negative for sore throat. Eyes: Negative for visual changes. Cardiovascular: Negative for chest pain. Respiratory: Negative for shortness of breath. Gastrointestinal: Negative for abdominal pain, vomiting or diarrhea. Genitourinary: Negative for dysuria. Musculoskeletal: Negative for back pain. Skin: Negative for rash. Neurological: As per HPI. 10 point ROS negative except as marked above and in HPI. Physical Exam - Vital signs Vitals: Resp Pulse Ox 15 96 03/20/20 09:49 03/20/20 09:49 - Notes Notes: GENERAL: Well-developed well-nourished middle-aged female appearing sleepy and mildly postictal. SKIN: Good turgor no rashes. HEAD: Normocephalic atraumatic. EYES: Pupils are large equal and briskly reactive to light. EOMI. Conjunctivae and sclerae clear. EARS: CANALS AND TMS CLEAR. NOSE: CLEAR. MOUTH: Moist mucosa. Good dentition. No stridor or edema. No drooling. NECK: Supple. No masses or thyromegaly. No adenopathy. Carotids 2+ without bruits. No JVD. BACK: Symmetrical without tenderness. CHEST: Respirations unlabored. Breath sounds clear and symmetrical. HEART: Regular rhythm. No murmur gallop or rub. ABDOMEN: Soft nontender without masses, organomegaly or rebound. Bowel sounds normally active. No bruits. GENITALIA: Deferred. EXTREMITIES: No edema. No calf tenderness. Cap refill less than 1.5 seconds. Dorsalis pedis and posterior tibial pulses 3+ and symmetrical. NEUROLOGICAL: GCS 14 with subtraction of 1 4 eyes closed initially. She is s omewhat sleepy and slow to answer but answers appropriately and follows commands appropriately. She is oriented x3. Fluent speech. Cranial nerves II through XII intact. Sensorimotor and cerebellar normal. Normal tone. Deep tendon reflexes are 4+ and symmetrical and she has 1 beat of ankle clonus bilaterally. PSYCHIATRIC: Flat affect. Course - Re-evaluation Re-evalutation: 03/20/20 14:09 44-year-old female with longstanding history of seizure disorder missed doses of her usual anticonvulsant and had 2 brief generalized seizures at home. She was mildly postictal upon arrival here. She gradually return to normal baseline mental status. She was given 1 dose of IV Ativan here. We gave her a dose of her regular medication orally. Her lab evaluation is otherwise unremarkable here. is here with her and understands the importance of being certain that she takes prescribed medication at home. She is ambulatory in the room and taking oral fluids normally with a nonfocal examination and is currently oriente d x3. She appears stable for outpatient follow-up with primary care provider. Findings, clinical impression and plan of treatment have been discussed with patient/family. Understanding of current findings and recommendations has been acknowledged by them and there is agreement regarding disposition and follow-up. - Vital Signs Vital signs: Temp Pulse Resp BP Pulse Ox 18 111/87 H 99 03/20/20 14:01 03/20/20 14:00 03/20/20 14:01 - Laboratory Result Diagrams: 03/20/20 09:53 03/20/20 09:53 Laboratory results interpreted by me: 03/20/20 03/20/20 09:53 09:53 RBC 5.44 H Hgb 16.0 H Direct Bilirubin 0.5 H AST 71 H ALT 60 H - Diagnostic Test Radiology reviewed: Reports reviewed - Per radiologist: Negative noncontrast head CT - EKG Interpretation by Me Additional EKG results interpreted by me: 03/20/20 16:13 Twelve-lead EKG reviewed by me contemporaneously: 1144 hrs. Indication for study: Seizure Rhythm: Normal sinus with multiple PACs Rate: 79 Intervals: Normal QRS axis: ST/T wave changes: None Comparison with prior tracing: Compared with prior tracing 07/06/2019 there is no significant interval change Interpretation: Sinus rhythm with PACs Discharge - Discharge Clinical Impression: Seizure, Noncompliance with medications Condition: Stable Disposition: HOME, SELF-CARE Additional Instructions: Avoid missing doses of prescribed medication for your seizure disorder. Do not drive a motor vehicle or operate machinery until cleared for these activities by your primary care doctor. Return here as needed for new or worsening symptoms. Forms: Return to Work Referrals: AV OGLESBY NP [Primary Care Provider] - Follow up as needed
[2020-03-20 10:07] LABS: ABSOLUTE BASOPHILS # (AUTO) 0.1 10^3/uL (0.0-0.2); ABSOLUTE EOSINOPHILS # (AUTO) 0.2 10^3/uL (0.0-0.6); ABSOLUTE LYMPHOCYTES (AUTO) 2.3 10^3/uL (0.5-4.7); ABSOLUTE MONOCYTES (AUTO) 0.6 10^3/uL (0.1-1.4); ABSOLUTE NEUT (AUTO) 4.7 10^3/uL (1.7-8.2); BASOPHILS % (AUTO) 0.7 % (0-2); HEMATOCRIT 44.6 % (36.0-47.0); LYMPHOCYTES % (AUTO) 29.3 % (13-45); MEAN CORPUSCULAR HEMOGLOBIN 29.5 pg (27.0-33.4); MEAN CORPUSCULAR VOLUME 82 fl (80-97); MONOCYTES % (AUTO) 7.1 % (3-13); PLATELET COUNT 272 10^3/uL (150-450); RED BLOOD COUNT 5.44 10^6/uL (3.72-5.28); RED CELL DISTRIBUTION WIDTH 13.8 % (11.5-14.0); SEGMENTED NEUTROPHILS % (AUTO) 59.9 % (42-78); TOTAL CELLS COUNTED % (AUTO) 100 %; WHITE BLOOD COUNT 7.8 10^3/uL (4.0-10.5)
[2020-03-20 10:31] LABS: ALBUMIN 4.4 g/dL (3.5-5.0); ALKALINE PHOSPHATASE 94 U/L (38-126); ANION GAP 9 (5-19); ASPARTATE AMINO TRANSFERASE 71 U/L (14-36); BILIRUBIN,DIRECT 0.5 mg/dL (0.0-0.4); BILIRUBIN,TOTAL 1.1 mg/dL (0.2-1.3); BLOOD UREA NITROGEN 12 mg/dL (7-20); CALCIUM 9.2 mg/dL (8.4-10.2); CARBON DIOXIDE 28 mmol/L (22-30); CHLORIDE 100 mmol/L (98-107); GLUCOSE 105 mg/dL (75-110); POTASSIUM 3.6 mmol/L (3.6-5.0); TOTAL PROTEIN 7.3 g/dL (6.3-8.2)
[2020-03-20 10:35] LABS: ALCOHOL < 10 mg/dL (NONE DETECTED)
--- NOTE | 2020-03-20 10:54 | RADIOLOGY REPORT (SQ) ---
EXAM DESCRIPTION: CT HEAD WITHOUT IMAGES COMPLETED DATE/TIME: 03/20/2020 10:39 am REASON FOR STUDY: seizure COMPARISON: CT of the head without contrast from 10/21/2009. TECHNIQUE: Axial images acquired through the brain without intravenous contrast. Images reviewed wi th bone, brain and subdural windows. Additional sagittal and coronal reconstructions were generated. Images stored on PACS. All CT scanners at this facility use dose modulation, iterative reconstruction, and/or weight based d osing when appropriate to reduce radiation dose to as low as reasonably achievable (ALARA). [facility]: Dose Right [facility]: CareDose [facility]: Dose Right [facility]: Teradose 4D [facility]: [employer] RADIATION DOSE: CT Rad equipment meets quality standard of care and radiation dose reduction techniq ues were employed. CTDIvol: 53.2 mGy. DLP: 1044 mGy-cm. LIMITATIONS: None. FINDINGS: There is no acute intracranial hemorrhage, vascular territorial infarct, extra-axial fluid collection, mass effect or midline shift. The remy-white matter differentiation is preserved. The caliber of the ventricles is concordant with the degree of sulcation. There is no effacement of the cerebral sulci or basal subarachnoid cisterns. The orbits and globes are intact. The paranasal sinuses are clear. There is no fracture of the calv arium. IMPRESSION: No acute intracranial abnormality. EVIDENCE OF ACUTE STROKE: NO. COMMENT: Quality ID # [id number]: Final reports with documentation of one or more dose reduction techniques (e.g., Automated exposure control, adjustment of the mA and/or kV according to patient size, use of iterative reconstruction technique) TECHNICAL DOCUMENTATION: JOB ID: [id number] 2010 [employer]- All Rights Reserved Reading location - IP/workstation name: [email or web address]
--- NOTE | 2020-03-20 10:54 | RADIOLOGY REPORT (SQ) ---
EXAM DESCRIPTION: CHEST SINGLE VIEW IMAGES COMPLETED DATE/TIME: 03/20/2020 10:43 am REASON FOR STUDY: seizure COMPARISON: None. EXAM PARAMETERS: NUMBER OF VIEWS: One view. TECHNIQUE: An AP view of the chest was obtained. RADIATION DOSE: NA LIMITATIONS: None. FINDINGS: LUNGS AND PLEURA: No consolidation, pleural effusion or pneumothorax. MEDIASTINUM AND HILAR STRUCTURES: No mediastinal or hilar contour abnormality. HEART AND VASCULAR STRUCTURES: The cardiac silhouette and pulmonary vasculature are within normal tierney its. BONES: No acute findings. HARDWARE: None in the chest. OTHER: No other finding. IMPRESSION: No acute cardiopulmonary process. TECHNICAL DOCUMENTATION: JOB ID: [id number] 2010 [employer]- All Rights Reserved Reading location - IP/workstation name: [email or web address]
[2020-03-20] MEDS ORDERED: NORMAL SALINE 1000 ML 1,000 ML IV ONE (11:14)
[2020-03-20 14:22] VITALS: BP 111/87
--- NOTE | 2020-03-20 18:28 | EKG REPORT ---
SEVERITY:- BORDERLINE ECG - SINUS RHYTHM LEFT AXIS DEVIATION BORDERLINE T ABNORMALITIES, DIFFUSE LEADS : Confirmed by: Shannon Lambert 20-Mar-2020 18:27:19
== END 2020-03-20 14:23 | disposition home or self-care (01) ==
LOC: ER 09:25
DX: G40.909 Epilepsy, unspecified, not intractable, without status epilepticus (principal); Z88.0 Allergy status to penicillin; Z88.8 Allergy status to other drugs, medicaments and biological substances; Z91.14 Patient's other noncompliance with medication regimen
CPT/HCPCS: 93005; 99285; 96361; 96374; 36415; 80307; 85025; 80053; 80201; 71045; 70450; 93010; J2060; J7030

== ENCOUNTER 2020-05-22 12:59 | Emergency (ER) | payer OTHER ==
--- NOTE | 2020-05-22 13:27 | ER Document Report ---
ED Medical Screen (RME) - General Stated Complaint: HEADACHE/POSSIBLE SEIZURE Time Seen by Provider: 05/22/20 13:19 Primary Care Provider: AV OGLESBY NP [Primary Care Provider] - Follow up as needed Mode of Arrival: Medic Information source: Patient Notes: 44-year-old female with history of epilepsy presented to the emergency department chief complaint of increased seizure activity today. She has had 3 seizures since 4 AM. She states she does get an aura with these. One seizure was witnessed by EMS. She is complaining of a headache currently. She does take Qudexy as prescribed by her physician. Patient calm, cooperative, answering all questions appropriately, no focal neurological deficits noted on exam. I have greeted and performed a rapid initial assessment of this patient. A comprehensive ED assessment and evaluation of the patient, analysis of test results and completion of the medical decision making process will be conducted by additional ED providers. I have specifically instructed the patient or family members with the patient to immediately return to any nursing staff should anything change in the patient's condition or with their chief complaint. TRAVEL OUTSIDE OF THE [place] IN LAST 30 DAYS: No - Related Data Allergies/Adverse Reactions: omeprazole [From Prilosec] Allergy (Severe, Verified 05/22/20 13:13) Facial edema and rash carbamazepine [From Carbatrol] Allergy (Mild, Verified 05/22/20 13:13) rash lamotrigine [From Lamictal] Allergy (Mild, Verified 05/22/20 13:13) rash levetiracetam [From Keppra] Allergy (Mild, Verified 05/22/20 13:13) Penicillins Allergy (Mild, Verified 05/22/20 13:13) Anaphylaxis Past Medical History - Past Medical History Cardiac Medical History: Denies: Hx Coronary Artery Disease, Hx Heart Attack, Hx Hypertension Pulmonary Medical History: Denies: Hx Asthma, Hx Bronchitis, Hx COPD, Hx Pneumonia Neurological Medical History: Reports: Hx Migraine, Hx Seizures - last seizure 2 weeks ago. Denies: Hx Cerebrovascular Accident Renal/ Medical History: Reports: Hx Kidney Stones. Denies: Hx Peritoneal Dialysis Musculoskeltal Medical History: Denies Hx Arthritis Psychiatric Medical History: Reports: Hx Depression Past Surgical History: Reports: Hx Section, Hx Hysterectomy, Hx Kidney (Renal Surgery) - kidney stone removed - Immunizations Immunizations up to date: Yes Hx Diphtheria, Pertussis, Tetanus Vaccination: Yes Physical Exam - Vital signs Vitals: Temp Pulse Resp BP Pulse Ox 98.0 F 103 H 16 113/73 100 05/22/20 13:13 05/22/20 13:13 05/22/20 13:13 05/22/20 13:13 05/22/20 13:13 Course - Vital Signs Vital signs: Temp Pulse Resp BP Pulse Ox 98.0 F 103 H 16 113/73 100 05/22/20 13:13 05/22/20 13:13 05/22/20 13:13 05/22/20 13:13 05/22/20 13:13 Doctor's Discharge - Discharge Referrals: AV OGLESBY KNITTING MACHINE TENDER [Primary Care Provider] - Follow up as needed
[2020-05-22 14:06] LABS: ABSOLUTE BASOPHILS # (AUTO) 0.1 10^3/uL (0.0-0.2); ABSOLUTE EOSINOPHILS # (AUTO) 0.3 10^3/uL (0.0-0.6); ABSOLUTE LYMPHOCYTES (AUTO) 2.4 10^3/uL (0.5-4.7); ABSOLUTE MONOCYTES (AUTO) 1.1 10^3/uL (0.1-1.4); ABSOLUTE NEUT (AUTO) 7.2 10^3/uL (1.7-8.2); BASOPHILS % (AUTO) 0.9 % (0-2); EOSINOPHILS % (AUTO) 2.8 % (0-6); HEMATOCRIT 45.7 % (36.0-47.0); LYMPHOCYTES % (AUTO) 21.4 % (13-45); MEAN CORPUSCULAR HEMOGLOBIN 28.9 pg (27.0-33.4); MEAN CORPUSCULAR VOLUME 83 fl (80-97); MONOCYTES % (AUTO) 9.7 % (3-13); PLATELET COUNT 297 10^3/uL (150-450); RED BLOOD COUNT 5.53 10^6/uL (3.72-5.28); RED CELL DISTRIBUTION WIDTH 14.4 % (11.5-14.0); SEGMENTED NEUTROPHILS % (AUTO) 65.2 % (42-78); TOTAL CELLS COUNTED % (AUTO) 100 %; WHITE BLOOD COUNT 11.1 10^3/uL (4.0-10.5)
[2020-05-22 14:09] LABS: APPEARANCE,URINE CLEAR; BILIRUBIN,URINE NEGATIVE (NEGATIVE); COLOR,URINE YELLOW; GLUCOSE, URINE NEGATIVE (NEGATIVE); KETONES,URINE NEGATIVE (NEGATIVE); LEUKOCYTE ESTERASE,URINE NEGATIVE (NEGATIVE); NITRITE,URINE NEGATIVE (NEGATIVE); PROTEIN,URINE NEGATIVE (NEGATIVE)
[2020-05-22 14:30] LABS: ALBUMIN 4.8 g/dL (3.5-5.0); ALKALINE PHOSPHATASE 101 U/L (38-126); ANION GAP 13 (5-19); ASPARTATE AMINO TRANSFERASE 26 U/L (14-36); BILIRUBIN,DIRECT 0.1 mg/dL (0.0-0.4); BILIRUBIN,TOTAL 0.6 mg/dL (0.2-1.3); BLOOD UREA NITROGEN 17 mg/dL (7-20); CALCIUM 9.8 mg/dL (8.4-10.2); CARBON DIOXIDE 25 mmol/L (22-30); CHLORIDE 100 mmol/L (98-107); POTASSIUM 3.1 mmol/L (3.6-5.0); TOTAL PROTEIN 8.1 g/dL (6.3-8.2)
[2020-05-22] MEDS ORDERED: LORAZEPAM INJ 2 MG/1 ML VIAL IV ONE (14:30)
[2020-05-22 14:36] LABS: ALCOHOL < 10 mg/dL (NONE DETECTED); GLUCOSE 67 mg/dL (75-110)
[2020-05-22 14:39] LABS: URINE AMPHETAMINES SCREEN NEGATIVE; URINE BARBITURATES SCREEN NEGATIVE; URINE COCAINE SCREEN NEGATIVE; URINE MARIJUANA (THC) SCREEN NEGATIVE; URINE METHADONE SCREEN NEGATIVE; URINE PHENCYCLIDINE SCREEN NEGATIVE
[2020-05-22 14:41] LABS: URINE BENZODIAZEPINES SCREEN UNCONFIRMED POSITIVE
[2020-05-22] MEDS ORDERED: POTASSIUM CHLORIDE 10 MEQ TABLET.ER PO ONE (16:17)
[2020-05-22] MEDS ORDERED: NAPROXEN 375 MG TABLET PO ONE (16:17)
--- NOTE | 2020-05-22 16:24 | ER Document Report ---
ED Seizure - General Chief Complaint: Probable Seizure Stated Complaint: HEADACHE/POSSIBLE SEIZURE Time Seen by Provider: 05/22/20 13:19 Primary Care Provider: RAMÍREZ MALIK MD [NO LOCAL MD] - Follow up tomorrow AV OGLESBY NP [Primary Care Provider] - Follow up in 1 week Mode of Arrival: Medic Notes: Patient is a 44 year old female who presents to the emergency department after having a seizure at work and again here in the emergency department. Patient states that she felt an aura before she had her seizure earlier. Denies any loss of sensation or weakness. Patient states that she does remember her seizure from earlier today at work. States that she has a slight headache. - Related Data Allergies/Adverse Reactions: omeprazole [From Prilosec] Allergy (Severe, Verified 05/22/20 13:13) Facial edema and rash carbamazepine [From Carbatrol] Allergy (Mild, Verified 05/22/20 13:13) rash lamotrigine [From Lamictal] Allergy (Mild, Verified 05/22/20 13:13) rash levetiracetam [From Keppra] Allergy (Mild, Verified 05/22/20 13:13) Penicillins Allergy (Mild, Verified 05/22/20 13:13) Anaphylaxis Past Medical History - General Information source: Patient - Social History Smoking Status: Never Smoker Chew tobacco use (# tins/day): No Frequency of alcohol use: None Drug Abuse: None Family History: Reviewed & Not Pertinent - Past Medical History Cardiac Medical History: Denies: Hx Coronary Artery Disease, Hx Heart Attack, Hx Hypertension Pulmonary Medical History: Denies: Hx Asthma, Hx Bronchitis, Hx COPD, Hx Pneumonia Neurological Medical History: Reports: Hx Migraine, Hx Seizures - last seizure 2 weeks ago. Denies: Hx Cerebrovascular Accident Renal/ Medical History: Reports: Hx Kidney Stones. Denies: Hx Peritoneal Dialysis Musculoskeletal Medical History: Denies Hx Arthritis Psychiatric Medical History: Reports: Hx Depression Past Surgical History: Reports: Hx Section, Hx Hysterectomy, Hx Kidney (Renal Surgery) - kidney stone removed - Immunizations Immunizations up to date: Yes Hx Diphtheria, Pertussis, Tetanus Vaccination: Yes Review of Systems - Review of Systems Notes: REVIEW OF SYSTEMS: CONSTITUTIONAL : Denies recent illness. Denies recent unintentional weight loss. Denies fever, chills, or sweats. EENT: Denies eye, ear, throat, or mouth pain, discharge, or symptoms. Denies nasal or sinus congestion. CARDIOVASCULAR: Denies chest pain. RESPIRATORY: Denies shortness of breath, cough, congestion, difficulty breathing, or wheezing. GASTROINTESTINAL: Denies nausea, vomiting, and diarrhea. Denies abdominal pain. Denies constipation. GENITOURINARY: Denies difficulty urinating, burning, blood in urine, urgency or frequency. MUSCULOSKELETAL: Denies neck and back pain. Denies joint pain or swelling. SKIN: Denies rash, itchiness, or lesions HEMATOLOGIC : Denies easy bruising or bleeding. LYMPHATIC: Denies swollen, painful, enlarged glands. NEUROLOGICAL: See HPI. PSYCHIATRIC: Denies stress, anxiety, alteration in sleep patterns, or depression. All other systems reviewed and negative. Physical Exam - Vital signs Vitals: Temp Pulse Resp BP Pulse Ox 98.0 F 103 H 16 113/73 100 05/22/20 13:13 05/22/20 13:13 05/22/20 13:13 05/22/20 13:13 05/22/20 13:13 - Notes Notes: PHYSICAL EXAMINATION: GENERAL: Appears well, healthy, well-nourished, no acute distress. HEAD: Normocephalic, atraumatic. EYES: PERRL, conjunctiva normal, all extraocular movements intact, sclera nonicteric ENT: Moist mucous membranes. NECK: Supple, no noticeable swelling, redness, rash. Normal range of motion. LUNGS: Equal breath sounds bilaterally and clear to auscultation. No wheezes rales or rhonchi. CARDIOVASCULAR: S1-S2, regular rate, regular rhythm. Radial pulses 2+, normal. ABDOMEN: Normoactive bowel sounds. Soft, nontender, no guarding, no rebound tenderness, and no masses palpated. EXTREMITIES: Normal strength and range of motion, no pitting or edema. No cyanosis. NEUROLOGICAL: Moves all extremities upon command. Strength 5/5 in all extremities. PSYCH: Normal mood, normal affect. SKIN: Warm, dry. No rash, lesions, ulcerations noted. Normal skin turgor. Course - Re-evaluation Re-evalutation: 05/22/20 16:24 Chemistries show a potassium of 3.1. We will give the patient 40 M EQ's of potassium. Glucose was also 67. Patient received a cup of juice. Urinalysis shows 3+ bacteria in her urine. We will send urine for culture. We will also start the patient on Keflex. Toxicology was positive for benzodiazepines, but she received lorazepam when she had her seizure here in the emergency department. I called Dr. Malik's office. Will await a callback from Dr. Malik. Patient does not have an appointment until September. 05/22/20 17:[address] Malik, the patient's neurologist. Patient will follow up with her. We also have started her on Bactrim. - Vital Signs Vital signs: Temp Pulse Resp BP Pulse Ox 98.0 F 103 H 12 109/78 100 05/22/20 13:13 05/22/20 13:13 05/22/20 15:01 05/22/20 15:01 05/22/20 15:01 - Laboratory Result Diagrams: 05/22/20 13:39 05/22/20 13:39 Laboratory results interpreted by me: 05/22/20 05/22/20 05/22/20 13:39 13:39 13:39 WBC 11.1 H RBC 5.53 H Hgb 16.0 H RDW 14.4 H Potassium 3.1 L Glucose 67 L Urine Urobilinogen 4.0 H Discharge - Discharge Clinical Impression: Seizure, Hypoglycemia, Hypokalemia Urinary tract infection Qualifiers: Urinary tract infection type: site unspecified Hematuria presence: without hematuria Qualified Code(s): N39.0 - Urinary tract infection, site not specified Condition: Stable Disposition: HOME, SELF-CARE Instructions: Trimethoprim-Sulfa ([facility]), Urinary Tract Infection ([facility]) Additional Instructions: Your urine shows findings consistent with a urinary tract infection. Please take all the antibiotics as directed even if your symptoms have improved. Please follow-up with your primary care physician as needed. Return to emergency room if you develop fever >101F, persistent vomiting, become lethargic, have severe pain in your sides, or any other symptoms that are concerning to you. You also had a seizure, which was most likely caused by your urinary tract infection, low blood sugar, and low potassium. Please make sure you are eating well and often. Please follow-up with your neurologist tomorrow or on Tuesday. Prescriptions: Sulfamethoxazole/Trimethoprim [Bactrim Ds Tablet] 1 each PO BID 7 Days #14 tablet Forms: Return to Work Referrals: AV OGLESBY NP [Primary Care Provider] - Follow up in 1 week RAMÍREZ MALIK MD [NO LOCAL MD] - Follow up tomorrow
[2020-05-22] MEDS ORDERED: SULFAMETHOXAZOLE/TRIMETHOPRIM 800-160 MG TABLET PO ONE (16:59)
[2020-05-22] MEDS ORDERED: TRAMADOL HCL 50 MG TABLET PO ONE (18:09)
[2020-05-22] MEDS ORDERED: PROMETHAZINE HCL 25 MG TABLET PO ONE (18:09)
[2020-05-22] MEDS ORDERED: CYCLOBENZAPRINE HCL 10 MG TABLET PO ONE (18:09)
[2020-05-22 18:32] VITALS: BP 109/88
== END 2020-05-22 18:41 | disposition home or self-care (01) ==
LOC: ER 12:59
DX: R56.9 Unspecified convulsions (principal); R51.9 Headache, unspecified; E87.6 Hypokalemia; N39.0 Urinary tract infection, site not specified; E16.2 Hypoglycemia, unspecified; Z88.8 Allergy status to other drugs, medicaments and biological substances; Z87.892 Personal history of anaphylaxis; Z88.0 Allergy status to penicillin
CPT/HCPCS: 99284; 96374; 36415; 82962; 80307 ×2; 83735; 84703; 85025; 80053; 81001; J3490; J2060

== ENCOUNTER 2020-06-03 15:51 | Emergency (ER) | payer OTHER ==
[2020-06-03] MEDS ORDERED: LORAZEPAM INJ 2 MG/1 ML VIAL IM ONE (15:53)
--- NOTE | 2020-06-03 15:58 | ER Document Report ---
ED Medical Screen (RME) - General Chief Complaint: Probable Seizure Stated Complaint: POSSIBLE SEIZURE Time Seen by Provider: 06/03/20 15:54 Primary Care Provider: AV OGLESBY COMMUNITY LIAISON [Primary Care Provider] - Follow up as needed TRAVEL OUTSIDE OF THE [place] IN LAST 30 DAYS: No - HPI Notes: 06/03/20 15:55 44 year old female with history of epilepsy to the ED with significant other with C/O seizures that have been constant and recurring since 10:15 this morning. SO state that the patient was admit last week for status. He is not completely sure of all her medicines but he brought them with him. Patient does typically have daily seizures. After she has a seizure, she is lethargic with slurred speech per SO. Denies any fevers, chills. Followed by Dr. Mullins in [place]. Was called out to the waiting room for possible active seizure. Patient is tremulous and will not interact with me but does not appear to have full blown grand mal. SO states her last full on seizure was approximately 15 minutes ago. Patient was taken directly back to Trauma 1. Dr. Damon assumed care. 1 mg of Ativan ordered for patient. I performed a brief medical screening exam on the patient and determined she will need further management by mainside provider. Orders were place to help expedite her care. - Related Data Allergies/Adverse Reactions: omeprazole [From Prilosec] Allergy (Severe, Verified 05/22/20 13:13) Facial edema and rash carbamazepine [From Carbatrol] Allergy (Mild, Verified 05/22/20 13:13) rash lamotrigine [From Lamictal] Allergy (Mild, Verified 05/22/20 13:13) rash levetiracetam [From Keppra] Allergy (Mild, Verified 05/22/20 13:13) Penicillins Allergy (Mild, Verified 05/22/20 13:13) Anaphylaxis Past Medical History - Past Medical History Cardiac Medical History: Denies: Hx Coronary Artery Disease, Hx Heart Attack, Hx Hypertension Pulmonary Medical History: Denies: Hx Asthma, Hx Bronchitis, Hx COPD, Hx Pneumonia Neurological Medical History: Reports: Hx Migraine, Hx Seizures - last seizure 2 weeks ago. Denies: Hx Cerebrovascular Accident Renal/ Medical History: Reports: Hx Kidney Stones. Denies: Hx Peritoneal Dialysis Musculoskeltal Medical History: Denies Hx Arthritis Psychiatric Medical History: Reports: Hx Depression Past Surgical History: Reports: Hx Section, Hx Hysterectomy, Hx Kidney (Renal Surgery) - kidney stone removed - Immunizations Immunizations up to date: Yes Hx Diphtheria, Pertussis, Tetanus Vaccination: Yes Doctor's Discharge - Discharge Referrals: AV OGLESBY NP [Primary Care Provider] - Follow up as needed
[2020-06-03] MEDS ORDERED: KETOROLAC TROMETHAMINE INJ/PF 30 MG/1 ML SDV IV ONE (15:59)
[2020-06-03] MEDS ORDERED: METOCLOPRAMIDE HCL INJ/PF 10 MG/2 ML SDV IV ONE (15:59)
[2020-06-03 16:16] LABS: ABSOLUTE BASOPHILS # (AUTO) 0.1 10^3/uL (0.0-0.2); ABSOLUTE EOSINOPHILS # (AUTO) 0.3 10^3/uL (0.0-0.6); ABSOLUTE LYMPHOCYTES (AUTO) 2.6 10^3/uL (0.5-4.7); ABSOLUTE MONOCYTES (AUTO) 0.6 10^3/uL (0.1-1.4); ABSOLUTE NEUT (AUTO) 5.1 10^3/uL (1.7-8.2); BASOPHILS % (AUTO) 1.2 % (0-2); EOSINOPHILS % (AUTO) 3.1 % (0-6); HEMATOCRIT 42.9 % (36.0-47.0); HEMOGLOBIN 15.1 g/dL (12.0-15.5); LYMPHOCYTES % (AUTO) 30.3 % (13-45); MEAN CORPUSCULAR HEMOGLOBIN 29.3 pg (27.0-33.4); MEAN CORPUSCULAR HGB CONC 35.1 g/dL (32.0-36.0); MEAN CORPUSCULAR VOLUME 84 fl (80-97); MONOCYTES % (AUTO) 6.4 % (3-13); PLATELET COUNT 318 10^3/uL (150-450); RED BLOOD COUNT 5.14 10^6/uL (3.72-5.28); RED CELL DISTRIBUTION WIDTH 14.1 % (11.5-14.0); TOTAL CELLS COUNTED % (AUTO) 100 %; WHITE BLOOD COUNT 8.7 10^3/uL (4.0-10.5)
[2020-06-03 17:28] LABS: ALBUMIN 3.7 g/dL (3.5-5.0); ALKALINE PHOSPHATASE 76 U/L (38-126); ANION GAP 7 (5-19); ASPARTATE AMINO TRANSFERASE 29 U/L (14-36); BILIRUBIN,DIRECT 0.3 mg/dL (0.0-0.4); BILIRUBIN,TOTAL 0.5 mg/dL (0.2-1.3); BLOOD UREA NITROGEN 13 mg/dL (7-20); CALCIUM 8.6 mg/dL (8.4-10.2); CARBON DIOXIDE 24 mmol/L (22-30); CHLORIDE 109 mmol/L (98-107); GLUCOSE 97 mg/dL (75-110); POTASSIUM 3.1 mmol/L (3.6-5.0); TOTAL PROTEIN 6.6 g/dL (6.3-8.2)
[2020-06-03 17:36] LABS: APPEARANCE,URINE CLEAR; BILIRUBIN,URINE NEGATIVE (NEGATIVE); COLOR,URINE YELLOW; GLUCOSE, URINE NEGATIVE (NEGATIVE); KETONES,URINE NEGATIVE (NEGATIVE); PROTEIN,URINE NEGATIVE (NEGATIVE); URINE SPECIFIC GRAVITY 1.018
[2020-06-03 17:56] LABS: URINE AMPHETAMINES SCREEN NEGATIVE; URINE BARBITURATES SCREEN NEGATIVE; URINE BENZODIAZEPINES SCREEN NEGATIVE; URINE COCAINE SCREEN NEGATIVE; URINE MARIJUANA (THC) SCREEN NEGATIVE; URINE METHADONE SCREEN NEGATIVE; URINE PHENCYCLIDINE SCREEN NEGATIVE
[2020-06-03] MEDS ORDERED: POTASSIUM CHLORIDE 20 MEQ PACKET PO ONE (17:57)
--- NOTE | 2020-06-03 17:57 | ER Document Report ---
ED General - General Chief Complaint: Seizure Stated Complaint: POSSIBLE SEIZURE Time Seen by Provider: 06/03/20 15:54 Primary Care Provider: AV OGLESBY NP [Primary Care Provider] - Follow up as needed Mode of Arrival: Wheelchair Information source: Patient TRAVEL OUTSIDE OF THE [place] IN LAST 30 DAYS: No - HPI Notes: Patient with a known seizure disorder is brought in in a wheelchair by her stating that she has been having seizures repeatedly today. She states she has a tonic-clonic seizure disorder. She states she feels that she has been under stress lately and this is caused her seizures. She complains of fatigue at this time. She did not have any significant complaints of pain. No vomiting or diarrhea. No known trauma from the seizure activity. She does have diffuse body aches which have been constant. They are made worse with movement and better with rest. They do radiate throughout her body. - Related Data Allergies/Adverse Reactions: omeprazole [From Prilosec] Allergy (Severe, Verified 05/22/20 13:13) Facial edema and rash carbamazepine [From Carbatrol] Allergy (Mild, Verified 05/22/20 13:13) rash lamotrigine [From Lamictal] Allergy (Mild, Verified 05/22/20 13:13) rash levetiracetam [From Keppra] Allergy (Mild, Verified 05/22/20 13:13) Penicillins Allergy (Mild, Verified 05/22/20 13:13) Anaphylaxis Past Medical History - General Information source: Patient - Social History Smoking Status: Former Smoker Frequency of alcohol use: None Drug Abuse: None Family History: Reviewed & Not Pertinent - Past Medical History Cardiac Medical History: Denies: Hx Coronary Artery Disease, Hx Heart Attack, Hx Hypertension Pulmonary Medical History: Denies: Hx Asthma, Hx Bronchitis, Hx COPD, Hx Pneumonia Neurological Medical History: Reports: Hx Migraine, Hx Seizures. Denies: Hx Cerebrovascular Accident Renal/ Medical History: Reports: Hx Kidney Stones. Denies: Hx Peritoneal Dialysis Musculoskeletal Medical History: Denies Hx Arthritis Psychiatric Medical History: Reports: Hx Depression Past Surgical History: Reports: Hx Section, Hx Hysterectomy, Hx Kidney (Renal Surgery) - kidney stone removed - Immunizations Immunizations up to date: Yes Hx Diphtheria, Pertussis, Tetanus Vaccination: Yes Review of Systems - Review of Systems Constitutional: denies: Chills, Fever Cardiovascular: denies: Chest pain, Palpitations Respiratory: denies: Cough, Short of breath -: Yes All other systems reviewed and negative Physical Exam - Vital signs Vitals: Pulse Resp Pulse Ox 98 18 99 06/03/20 16:04 06/03/20 16:04 06/03/20 16:04 Interpretation: Normal - General General appearance: Appears well, Alert - HEENT Head: Normocephalic, Atraumatic Eyes: Normal Pupils: PERRL - Respiratory Respiratory status: No respiratory distress Chest status: Nontender Breath sounds: Normal Chest palpation: Normal - Cardiovascular Rhythm: Regular Heart sounds: Normal auscultation Murmur: No - Abdominal Inspection: Normal Distension: No distension Bowel sounds: Normal Tenderness: Nontender Organomegaly: No organomegaly - Back Back: Normal, Nontender - Extremities General upper extremity: Normal inspection, Nontender, Normal color, Normal ROM, Normal temperature General lower extremity: Normal inspection, Nontender, Normal color, Normal ROM, Normal temperature, Normal weight bearing. No: Yazmin's sign - Neurological Neuro grossly intact: Yes Cognition: Normal Orientation: AAOx4 [place] Coma Scale Eye Opening: Spontaneous [place] Coma Scale Verbal: Oriented [place] Coma Scale Motor: Obeys Commands [place] Coma Scale Total: 15 Speech: Normal Cranial nerves: Normal Cerebellar coordination: Normal Motor strength normal: LUE, RUE, LLE, RLE Sensory: Normal - Psychological Associated symptoms: Normal affect, Normal mood - Skin Skin Temperature: Warm Skin Moisture: Dry Skin Color: Normal Course - Re-evaluation Re-evalutation: 06/03/20 17:54 Patient is brought in by for repeated seizure activity. Patient was described as having seizure activity by the as she is being wheeled into the room however patient was alert with eyes open and following commands. She did seem somewhat tense with diffuse tonic activity. I did not see any activity that I felt was consistent with a tonic-clonic generalized seizure. Patient has unremarkable work-up otherwise, except for some mild decreased potassium. - Vital Signs Vital signs: Temp Pulse Resp BP Pulse Ox 98.5 F 98 18 121/81 99 06/03/20 16:08 06/03/20 16:04 06/03/20 16:04 06/03/20 16:07 06/03/20 16:04 - Laboratory Result Diagrams: 06/03/20 16:05 06/03/20 17:00 Laboratory results interpreted by me: 06/03/20 06/03/20 06/03/20 16:05 17:00 17:10 RDW 14.1 H Potassium 3.1 L Chloride 109 H Urine Urobilinogen 2.0 H Discharge - Discharge Clinical Impression: Hypokalemia, Seizure Condition: Stable Disposition: HOME, SELF-CARE Instructions: Hypokalemia ([facility]), Seizure, Known Epileptic ([facility]) Additional Instructions: Please follow-up with your neurologist as scheduled Prescriptions: Lorazepam [Ativan 0.5 mg Tablet] 0.5 mg PO BID 3 Days #6 tab Forms: Return to Work Referrals: AV OGLESBY NP [Primary Care Provider] - Follow up as needed
[2020-06-03 18:15] VITALS: BP 91/56
[2020-06-03] MEDS ORDERED: LORAZEPAM INJ 2 MG/1 ML VIAL IV ONE (18:20)
== END 2020-06-03 18:24 | disposition home or self-care (01) ==
LOC: ER 15:51
DX: G40.409 Other generalized epilepsy and epileptic syndromes, not intractable, without status epilepticus (principal); E87.6 Hypokalemia; R53.83 Other fatigue; R52 Pain, unspecified; Z79.899 Other long term (current) drug therapy; Z87.891 Personal history of nicotine dependence; Z88.8 Allergy status to other drugs, medicaments and biological substances; Z87.892 Personal history of anaphylaxis; Z88.0 Allergy status to penicillin
CPT/HCPCS: 99284; 96374; 96375; 36415; 83735; 84703; 85025; 80053; 81001; 80307; J1885; J2765; J2060; J3490